=== PATIENT | male | born 1930 | race Caucasian/White ===

== ENCOUNTER 2018-06-17 06:19 | Emergency (ER) | payer MEDICARE, BC ==
[2018-06-17] MEDS ORDERED: Sodium Chloride 0.9% 1,000 ML IV ONE (06:40)
[2018-06-17] MEDS ORDERED: Ondansetron 4 MG/2 ML SDV IVPUSH ONE (06:40)
[2018-06-17] MEDS: Morphine 10 MG/ML Syringe IVPUSH ONE ×2 (06:48→06:55)
[2018-06-17] MEDS ORDERED: Ketorolac 30 MG/ML SDV IVPUSH ONE (07:00)
[2018-06-17] MEDS: Metoprolol Tartrate 5 MG/5 ML SDV IVPUSH ONE ×2 (07:05→07:45)
[2018-06-17] MEDS: HYDROmorphone 2 MG/ML SDV IVPUSH ONE ×2 (07:07→07:11)
[2018-06-17] MEDS ORDERED: Non-Formulary Medication 1 Each IV SCH (08:00)
--- NOTE | 2018-06-17 08:41 | EDM.PDOC ---
ED HPI GENERAL MEDICAL PROBLEM - General Chief Complaint: General Stated Complaint: BACK PAIN Time Seen by Provider: 06/17/18 06:50 Source of Information: Reports: Patient, Old Records History Limitations: Reports: No Limitations - History of Present Illness INITIAL COMMENTS - FREE TEXT/NARRATIVE: This is a 87yo M who came to the ER with severe back pain. He is writhing in pain. Patient states the pain is the worst pain he has felt and 10+/10. He has had a BM earlier this am when the pain started. He states it has been going on for hours and started around 2 am. He denies any fever, no chills, just mid abdominal and back pain. Patient does have a history of Graft for AAA in 2010 and cardiac stent in 2015. Onset: Sudden Duration: Hour(s): Location: Reports: Abdomen, Back Quality: Reports: Ache, Sharp, Stabbing, Throbbing Severity: Severe Improves with: Reports: None Worsens with: Reports: None Associated Symptoms: Reports: No Other Symptoms ED ROS GENERAL - Review of Systems Review Of Systems: ROS reveals no pertinent complaints other than HPI. ED EXAM, GENERAL - Physical Exam Exam: See Below Exam Limited By: No Limitations General Appearance: Alert, WD/WN, Severe Distress Eye Exam: Bilateral Eye: EOMI, PERRL Ears: Normal External Exam Nose: Normal Inspection Throat/Mouth: Normal Inspection Head: Atraumatic, Normocephalic Neck: Normal Inspection Respiratory/Chest: No Respiratory Distress, Lungs Clear, Normal Breath Sounds Cardiovascular: Normal Peripheral Pulses, Regular Rate, Rhythm Peripheral Pulses: 2+: Dorsalis Pedis (L), Dorsalis Pedis (R) GI/Abdominal: Soft, Abnormal Bowel Sounds (hyperactive BS), Mass, Other ( pulsatile mass of the abdomen superior to umbilicus) Back Exam: Normal Inspection Extremities: Normal Inspection Neurological: Alert, Oriented, Normal Cognition Psychiatric: Normal Affect, Normal Mood Skin Exam: Warm, Dry, Intact Course - Orders/Labs/Meds Orders: Active Orders 24 hr Category Date Time Status Abdomen 1V Flat [CR] Stat Exams 06/17/18 07:04 Taken Abdomen Pelvis wo Cont [CT] Stat Exams 06/17/18 07:04 Taken UA W/MICROSCOPIC [URIN] Stat Lab 06/17/18 07:30 Ordered Labs: Laboratory Tests 06/17/18 06/17/18 06/17/18 Range/Units 06:53 06:53 07:30 WBC 10.7 D (4.0-11.0) K/uL RBC 2.80 L (4.50-6.50) M/uL Hgb 9.2 L (13.0-18.0) g/dL Hct 27.3 L (40.0-54.0) % MCV 98 H (76-96) fL MCH 32.9 H (27.0-32.0) pg MCHC 33.7 (31.0-35.0) g/dL RDW 12.2 (11.0-16.0) % Plt Count 158 (150-400) K/uL MPV 9.5 (6.0-10.0) fL Neut % (Auto) 84.1 H (45.0-70.0) % Lymph % (Auto) 6.9 L (20.0-40.0) % [place] % (Auto) 8.0 (3.0-10.0) % Eos % (Auto) 0.8 L (1.0-5.0) % Baso % (Auto) 0.2 (0.0-0.5) % Neut # (Auto) 8.98 H (2.00-7.50) K/uL Lymph # (Auto) 0.74 L (1.50-4.00) K/uL [place] # (Auto) 0.86 H (0.20-0.80) K/uL Eos # (Auto) 0.09 (0.04-0.40) K/uL Baso # (Auto) 0.02 (0.02-0.10) K/uL Sodium 138 (136-145) mmol/L Potassium 3.5 D (3.5-5.1) mmol/L Chloride 102 (98-107) mmol/L Carbon Dioxide 23.0 (21.0-32.0) mmol/L Anion Gap 16.5 H (5.0-15.0) mmol/L BUN 23 D (8-26) mg/dL Creatinine 1.41 H (0.70-1.30) mg/dL Est Cr Clr Drug Dosing TNP Estimated GFR (MDRD) 48 L (>60) MLS/MIN BUN/Creatinine Ratio 16.3 (6-25) Glucose 189 H D (74-100) mg/dL Calcium 8.0 L (8.5-10.1) mg/dL Total Bilirubin 0.6 D (0.0-1.0) mg/dL AST 20 (15-37) U/L ALT 22 (12-78) U/L Alkaline Phosphatase 58 (46-116) U/L Troponin I 0.002 (0.000-0.060) ng/mL Total Protein 6.9 (6.4-8.2) g/dL Albumin 3.7 (3.4-5.0) g/dL Globulin 3.2 (2.2-4.2) g/dL Albumin/Globulin Ratio 1.2 (0.8-2.0) Urine Color Yellow Urine Appearance Clear (CLEAR) Urine pH 6.0 (5.0-8.0) Ur Specific [place] 1.020 (1.003-1.030) Urine Protein 30 H (NEGATIVE) mg/dL Urine Glucose (UA) Negative (NEGATIVE) mg/dL Urine Ketones Negative (NEGATIVE) mg/dL Urine Occult Blood Trace-intact H (NEGATIVE) Urine Nitrite Negative (NEGATIVE) Urine Bilirubin Negative (NEGATIVE) Urine Urobilinogen 0.2 (0.2-1.0) E.U./dL Ur Leukocyte Esterase Negative (NEGATIVE) Urine RBC Not seen /HPF Urine WBC Not seen /HPF Ur Squamous Epith Cells Few /HPF Urine Bacteria Not seen /HPF Departure - Departure Time of Disposition: 09:30 Disposition: DC/Tfer to Acute Hospital 02 Condition: Serious, Critical Clinical Impression: Ruptured abdominal aortic aneurysm (AAA) - Discharge Information Referrals: PCP,Unknown [Primary Care Provider] - - Problem List & Annotations (1) Ruptured abdominal aortic aneurysm (AAA) SNOMED Code(s): 25014918 Code(s): I71.3 - ABDOMINAL AORTIC ANEURYSM, RUPTURED Status: Acute Current Visit: Yes - Problem List Review Problem List Initiated/Reviewed/Updated: Yes - My Orders Last 24 Hours: My Active Orders 06/17/18 07:04 Abdomen 1V Flat [CR] Stat Abdomen Pelvis wo Cont [CT] Stat 06/17/18 07:30 UA W/MICROSCOPIC [URIN] Stat - Assessment/Plan Last 24 Hours: My Active Orders 06/17/18 07:04 Abdomen 1V Flat [CR] Stat Abdomen Pelvis wo Cont [CT] Stat 06/17/18 07:30 UA W/MICROSCOPIC [URIN] Stat Plan: Consulted Vascular surgeon [place]'s Dr. Blankenship. Pacs sent but [facility] unable to open? Sent again and verified on our system. Discussed plan of care and patient will be placed on Esmolol drip to maintain low systolic pressure and will be airlifted to OR.
[2018-06-17] MEDS ORDERED: WATER ONE (09:45)
[2018-06-17] MEDS ORDERED: HYDROmorphone 2 MG/ML Syringe ONE (09:45)
[2018-06-17] MEDS ORDERED: 5% Dextrose in Water 100 ML Bag ONE (09:45)
[2018-06-17] MEDS ORDERED: Esmolol 100 MG/10 ML SDV ONE ×3 (09:45)
[2018-06-17] MEDS ORDERED: DEXTROSE ONE (09:45)
--- NOTE | 2018-06-17 11:31 | CR ---
DATE OF SERVICE: 06/17/18 CLINICAL DATA: pain SUPINE ABDOMEN: There is gas throughout the colon. There are multiple gas-filled loops of small bowel within the abdomen. They are not distended. There is an aortic endograft in place. No other significant findings. [id number] [facility]
--- NOTE | 2018-06-17 20:25 | CONS ---
DATE OF CONSULTATION: 06/17/2018 Unenhanced abdomen and pelvic CT, 17 June 2018: Multi slice axial acquisition through the abdomen and pelvis without IV or oral contrast was performed. No priors. The lung bases are clear. The liver is normal size. There are several low-density lesions within the liver. These may represent cysts; however, there are not adequately evaluated on this unenhanced scan. Contrast-enhanced CT is recommended. The gallbladder appears normal. The spleen appears normal. The pancreas appears normal. There is mild atrophy of both kidneys. No nephrocalcinosis or nephrolithiasis. No hydronephrosis or hydroureter. There is an aortic endograft in place. There is 8.0 cm aneurysm of the [place] aorta. There is dense of abnormal soft tissue density material in the periaortic retroperitoneum as well as within the anterior pararenal spaces and posterior pararenal spaces bilaterally with extension into the right and left pelvis. This most likely represents aortic rupture with retroperitoneal hemorrhage/hematoma. There is a Lau catheter within the bladder. No free air. No dilated loops of bowel. No adenopathy. IMPRESSION: Abnormal exam. Findings consistent with aortic aneurysm with aortic rupture and extensive retroperitoneal hemorrhage as discussed above. The patient's physician was notified of the findings via telephone and by virtual radiologic preliminary radiology report. TANO/YONATAN /[id number]
--- NOTE | 2018-06-21 08:49 | CT ---
DATE OF SERVICE: 06/17/2018 CLINICAL DATA: Pain. UNENHANCED ABDOMEN AND PELVIC CT: Multislice axial acquisition through the abdomen and pelvis without IV or oral contrast was performed. No priors. The lung bases are clear. The liver is normal size. There are several low-density lesions within the liver. These may represent cysts; however, there are not adequately evaluated on this unenhanced scan. Contrast-enhanced CT is recommended. The gallbladder appears normal. The spleen appears normal. The pancreas appears normal. There is mild atrophy of both kidneys. No nephrocalcinosis or nephrolithiasis. No hydronephrosis or hydroureter. There is an aortic endograft in place. There is an 8.0 cm aneurysm of the [place] aorta. There is extensive abnormal soft tissue density material in the periaortic retroperitoneum, as well as within the anterior pararenal spaces and posterior pararenal spaces bilaterally with extension into the right and left pelvis. This most likely represents aortic rupture with retroperitoneal hemorrhage/hematoma. There is a Lau catheter within the bladder. No free air. No dilated loops of bowel. No adenopathy. IMPRESSION Abnormal exam. Findings consistent with aortic aneurysm with aortic rupture and extensive retroperitoneal hemorrhage, as discussed above. The patient's physician was notified of the findings via telephone and by virtual radiologic preliminary radiology report. [facility]
== END 2018-06-17 09:46 ==
LOC: LB.ED 06:19
DX: I71.3 Abdominal aortic aneurysm, ruptured (principal)
CPT/HCPCS: 36415; 74018; 74176; 80053; 81001; 84484; 85025; 96374; 96375; 96376; 99285; 99285-25; A0425; A0429; J1170; J1885; J2270; J2405; J3490; J7030; J7050; J7060

== ENCOUNTER 2020-08-10 06:37 | Emergency (ER) | payer MEDICARE, BC ==
[2020-08-10] MEDS ORDERED: Labetalol 100 MG/20 ML MDV IVPUSH ONE ×2 (07:03→07:19)
[2020-08-10] MEDS ORDERED: Morphine 2 MG/ML SYRINGE ONE (07:11)
[2020-08-10] MEDS ORDERED: LORazepam 2 MG/ML SDV IVPUSH ONE (07:14)
[2020-08-10] MEDS ORDERED: Labetalol 100 MG in Sodium Chloride 0.9% 80 ML IV SCH (07:15)
[2020-08-10] MEDS ORDERED: LORazepam 2 MG/ML SDV ONE (07:23)
[2020-08-10] MEDS ORDERED: Morphine 2 MG/ML SYRINGE IM ONE (08:34)
--- NOTE | 2020-08-10 09:01 | EDM.PDOC ---
ED HPI GENERAL MEDICAL PROBLEM - General Chief Complaint: Neurological Problem Stated Complaint: POSSIBLE ANEURYSM REPAIR RUPTURE Time Seen by Provider: 08/10/20 06:45 Source of Information: Reports: Patient History Limitations: Reports: No Limitations - History of Present Illness INITIAL COMMENTS - FREE TEXT/NARRATIVE: The patient is an 89-year-old white male who has history of abdominal aortic aneurysm surgery approximately 10 years ago. 2 years ago he had leakage on the right side of his repair with right-sided groin pain at that time. Patient reports that he noticed onset of left-sided pain in the groin which was the same type of pain he had with the leakage on the right side only on the left this time. The pain worsened through the night and patient called the ambulance for transport to the hospital. He had been flown via fixed wing aircraft to [place] to [facility] for repair 2 years ago. Onset: Today Onset Date: 08/09/20 Onset Time: 08:00 Duration: Other (10 hours) Location: Reports: Other (Left lower quadrant and inguinal region) Severity: Severe Improves with: Reports: None Worsens with: Reports: Movement Associated Symptoms: Reports: No Other Symptoms. Denies: Nausea/Vomiting - Related Data Allergies Allergy/AdvReac Type Severity Reaction Status Date / Time No Known Allergies Allergy Verified 06/17/18 08:41 Home Meds: Home Meds Isosorbide Mononitrate [Isosorbide Mononitrate ER] 06/17/18 [History] Metoprolol Succinate [Toprol XL 50mg] 06/17/18 [History] Nitroglycerin 06/17/18 [History] Tamsulosin [Flomax] 06/17/18 [History] amLODIPine Besylate [Amlodipine Besylate] 06/17/18 [History] atorvaSTATin [Lipitor] 40 mg PO BEDTIME 06/17/18 [History] hydroCHLOROthiazide [Hydrochlorothiazide] 25 mg PO 06/17/18 [History] Past Medical History Other Gastrointestinal History: hx of a AAA repair x2 ED ROS GENERAL - Review of Systems Review Of Systems: See Below Constitutional: Denies: Fever, Chills Respiratory: Denies: Shortness of Breath, Cough, Sputum Cardiovascular: Denies: Chest Pain, Lightheadedness GI/Abdominal: Reports: Abdominal Pain. Denies: Diarrhea, Nausea, Vomiting : Reports: No Symptoms Skin: Reports: Other (Petechial rash for past few months) Psychiatric: Reports: Anxiety ED EXAM, GENERAL - Physical Exam Exam: See Below Exam Limited By: No Limitations General Appearance: Alert, Anxious, Mild Distress Ears: Normal External Exam Nose: Normal Inspection, Normal Mucosa Throat/Mouth: Normal Inspection Head: Atraumatic, Normocephalic Neck: Normal Inspection, Supple, Non-Tender Respiratory/Chest: No Respiratory Distress, Lungs Clear, Normal Breath Sounds, No Accessory Muscle Use, Chest Non-Tender Cardiovascular: No JVD, Tachycardia GI/Abdominal: Soft, Other (Mild left lower quadrant tenderness without rebound or guarding) (Male) Exam: Deferred Back Exam: Normal Inspection Extremities: Pedal Edema, Other ( petechial rash) Course - Vital Signs Text/Narrative:: The patient was initially treated with labetalol 20 mg IV x210 minutes apart labetalol drip was started. At 2 mg/min . Nurses were instructed to titrate this upward to control the blood pressure systolic below 120. Ativan 1 mg IV and morphine 2 mg IV were given Ativan for anxiety,, and morphine for pain. Air transport was arranged. Initial attempt at helicopter transport was unsuccessful due to weather. Fixed wing transport was arranged with the plane landing in [place] connecting with ground transport from the hospital, and then taking the patient to [facility] in [place]. Patient had labetalol drip during transfer. RN to titrate labetalol drip to lower the blood pressure below 120 systolic. The case was discussed with Dr. Gong who agreed to acept patient in transfer to [facility] ED for further evaluation. Condition on discharge was improved. Last Recorded V/S: Last Vital Signs Temp 97.8 F 08/10/20 07:10 Pulse 102 H 08/10/20 07:10 Resp 16 08/10/20 07:10 BP 155/103 H 08/10/20 07:10 Pulse Ox 94 L 08/10/20 07:10 - Orders/Labs/Meds Labs: Laboratory Tests 08/10/20 08/10/20 08/10/20 Range/Units 07:10 07:10 07:10 WBC 6.4 D (4.0-11.0) K/uL RBC 3.14 L (4.50-6.50) M/uL Hgb 9.4 L (13.0-18.0) g/dL Hct 29.7 L (40.0-54.0) % MCV 95 (76-96) fL MCH 29.9 (27.0-32.0) pg MCHC 31.6 (31.0-35.0) g/dL RDW 14.4 (11.0-16.0) % Plt Count 129 L D (150-400) K/uL MPV 10.9 H (6.0-10.0) fL Neut % (Auto) 76.9 H (45.0-70.0) % Lymph % (Auto) 7.7 L (20.0-40.0) % [place] % (Auto) 13.0 H (3.0-10.0) % Eos % (Auto) 2.2 (1.0-5.0) % Baso % (Auto) 0.2 (0.0-0.5) % Neut # (Auto) 4.91 (2.00-7.50) K/uL Lymph # (Auto) 0.49 L (1.50-4.00) K/uL [place] # (Auto) 0.83 H (0.20-0.80) K/uL Eos # (Auto) 0.14 (0.04-0.40) K/uL Baso # (Auto) 0.01 L (0.02-0.10) K/uL PT (9.0-11.5) sec INR (1.0-3.5) APTT 25.1 (24.4-33.2) SECONDS Sodium 137 (136-145) mmol/L Potassium 3.7 (3.5-5.1) mmol/L Chloride 100 (98-107) mmol/L Carbon Dioxide 27.1 (21.0-32.0) mmol/L Anion Gap 13.6 (5.0-15.0) mmol/L BUN 14 (8-26) mg/dL Creatinine 1.21 (0.70-1.30) mg/dL Est Cr Clr Drug Dosing TNP Estimated GFR (MDRD) 57 L (>60) MLS/MIN BUN/Creatinine Ratio 11.6 (6-25) Glucose 185 H D (74-100) mg/dL Calcium 8.3 L (8.5-10.1) mg/dL Total Bilirubin 1.4 H (0.0-1.0) mg/dL AST 27 (15-37) U/L ALT 31 (12-78) U/L Alkaline Phosphatase 97 (46-116) U/L Total Protein 7.5 (6.4-8.2) g/dL Albumin 4.0 (3.4-5.0) g/dL Globulin 3.5 (2.2-4.2) g/dL Albumin/Globulin Ratio 1.1 (0.8-2.0) 08/10/20 Range/Units 07:10 WBC (4.0-11.0) K/uL RBC (4.50-6.50) M/uL Hgb (13.0-18.0) g/dL Hct (40.0-54.0) % MCV (76-96) fL MCH (27.0-32.0) pg MCHC (31.0-35.0) g/dL RDW (11.0-16.0) % Plt Count (150-400) K/uL MPV (6.0-10.0) fL Neut % (Auto) (45.0-70.0) % Lymph % (Auto) (20.0-40.0) % [place] % (Auto) (3.0-10.0) % Eos % (Auto) (1.0-5.0) % Baso % (Auto) (0.0-0.5) % Neut # (Auto) (2.00-7.50) K/uL Lymph # (Auto) (1.50-4.00) K/uL [place] # (Auto) (0.20-0.80) K/uL Eos # (Auto) (0.04-0.40) K/uL Baso # (Auto) (0.02-0.10) K/uL PT 12.1 H (9.0-11.5) sec INR 1.2 (1.0-3.5) APTT (24.4-33.2) SECONDS Sodium (136-145) mmol/L Potassium (3.5-5.1) mmol/L Chloride (98-107) mmol/L Carbon Dioxide (21.0-32.0) mmol/L Anion Gap (5.0-15.0) mmol/L BUN (8-26) mg/dL Creatinine (0.70-1.30) mg/dL Est Cr Clr Drug Dosing Estimated GFR (MDRD) (>60) MLS/MIN BUN/Creatinine Ratio (6-25) Glucose (74-100) mg/dL Calcium (8.5-10.1) mg/dL Total Bilirubin (0.0-1.0) mg/dL AST (15-37) U/L ALT (12-78) U/L Alkaline Phosphatase (46-116) U/L Total Protein (6.4-8.2) g/dL Albumin (3.4-5.0) g/dL Globulin (2.2-4.2) g/dL Albumin/Globulin Ratio (0.8-2.0) Meds: Medications Discontinued Medications Generic Name Dose Route Start Last Admin Trade Name Freq PRN Reason Stop Dose Admin Labetalol HCl 100 mg/ Sodium 100 mls @ 120 mls/hr 08/10/20 07:15 08/10/20 08:33 Chloride IV 2 mg/min TITRATE GALEN 120 mls/hr Administration Protocol 2 MG/MIN Labetalol HCl 20 mg 08/10/20 07:03 08/10/20 07:10 Normodyne IVPUSH 08/10/20 07:04 20 mg ONETIME ONE Administration Protocol Labetalol HCl 20 mg 08/10/20 07:19 08/10/20 07:20 Normodyne IVPUSH 08/10/20 07:20 20 mg ONETIME ONE Administration Protocol Lorazepam 1 mg 08/10/20 07:14 08/10/20 07:18 Ativan IVPUSH 08/10/20 07:15 1 mg ONETIME ONE Administration Lorazepam Confirm 08/10/20 07:23 Ativan Administered 08/10/20 07:24 Dose 2 mg .ROUTE .STK-MED ONE Morphine Sulfate Confirm 08/10/20 07:11 Morphine Administered 08/10/20 07:12 Dose 2 mg .ROUTE .STK-MED ONE Morphine Sulfate 2 mg 08/10/20 08:34 08/10/20 07:04 Morphine IM 08/10/20 08:35 2 mg ONETIME ONE Administration - Radiology Interpretation Free Text/Narrative:: CT with large aortic abdominal aneurysm with repair. Possible leaking of bypass into the [place] aneurysm. Copy of report sent to referral hospital. Departure - Departure Time of Disposition: 07:45 Disposition: DC/Tfer to Acute Hospital 02 Reason for Transfer *Q: Other (Higher level of care) Condition: Serious Clinical Impression: Abdominal aortic aneurysm rupture, Leaking abdominal aortic aneurysm (AAA) Referrals: PCP,None [Primary Care Provider] - Forms: ED Department Discharge Additional Instructions: Plan is to transfer patient via ground ambulance to [place] and then transfer to fixed wing aircraft to take the patient to [facility]. Patient's blood pressure to be controlled by labetalol drip. Initial drip at 2 mg/min. RN to titrate to target of systolic blood pressure 120. Patient be transferred to the emergency department for further evaluation at [facility] Sepsis Event Note (ED) - Evaluation Sepsis Screening Result: No Definite Risk
--- NOTE | 2020-08-12 09:57 | CT ---
Date of Service: 08/10/20 Clinical Data: R/o rupture of AAA repair on left side ENHANCED ABDOMEN AND PELVIC CT: Multislice acquisition through the abdomen and pelvis with IV, but without oral contrast was performed. Comparison is made to a prior exam dated 06/17/18. Thee is a moderate size right pleural effusion and a very small left pleural effusion. There are atelectatic changes in both lung bases. There is diffuse fatty infiltration of the liver. There is an 11 mm low density lesion within the left lobe of the liver, medial segment with subtle peripheral enhancement. There are a couple of other smaller low density lesions within the liver. Hepatic metastatic disease should be considered. The gallbladder appears normal. No biliary duct dilatation. The spleen appears normal. The pancreas appears normal. The right and left adrenals appear normal. The right and left kidneys enhance symmetrically. No hydronephrosis or hydroureter The bladder is partially fluid filled. It appears normal. No evidence of appendicitis. There is a large 8.1 cm abdominal aortic aneurysm with an aortic endograft in place . There is contrast noted within the graft. There is also hyperdensity within the [place] aorta external to the graft suggesting a graft leakage. No evidence of leakage from the [place] aorta. No free air. No free fluid. No dilated loops of bowel. No adenopathy. There is diverticulosis of the descending and sigmoid colon. There is mild pericolonic fat stranding adjacent to the distal descending and proximal sigmoid colon suggesting the possibility of diverticulitis. No evidence of diverticular abscess. There is degenerative disk disease throughout the lower thoracic and lumbar spine. No other significant findings. IMPRESSION: 1. 8.1 cm abdominal aortic aneurysm. There is an aortic endograft in place. There is contrast noted within the graft. There is also some hyperdense material within the [place] aortic aneurysm distally suggesting graft leakage. No evidence of leakage from the [place] aorta. 2, Findings suggesting mild diverticulitis. No evidence of diverticular abscess. 3. Bilateral pleural effusions. 4. Other findings as discussed above. The patient's physician was notified of the findings by telephone and by [employer] preliminary radiology report. [id number] [facility]
== END 2020-08-10 07:45 ==
LOC: LB.ED 06:37
DX: I71.3 Abdominal aortic aneurysm, ruptured (principal); R00.0 Tachycardia, unspecified; R21 Rash and other nonspecific skin eruption; R60.0 Localized edema
CPT/HCPCS: 36415; 74177; 80053; 85025; 85610; 85730; 96365; 96372; 96375; 96376; 99285; 99285-25; J2060; J2270; J3490

== ENCOUNTER 2021-09-02 10:55 | Emergency (ER) | payer MEDICARE, BC ==
[2021-09-02] MEDS ORDERED: Furosemide 40 MG/4 ML VIAL IVPUSH ONE (11:19)
[2021-09-02] MEDS ORDERED: Metoprolol Tartrate 5 MG/5 ML SDV IVPUSH ONE (11:19)
--- NOTE | 2021-09-02 11:35 | EDM.PDOC ---
ED HPI GENERAL MEDICAL PROBLEM - General Chief Complaint: General Stated Complaint: SHORTNESS OF BREATH Time Seen by Provider: 09/02/21 11:11 Source of Information: Reports: Patient, RN Notes Reviewed History Limitations: Reports: No Limitations - History of Present Illness INITIAL COMMENTS - FREE TEXT/NARRATIVE: This patient presents to the emergency department complaining of just not feeling well. He states he is gotten progressively weaker and more short of breath over the past couple of months. He states that he was seen in the ER last October for similar concerns and he was noted to be anemic. He is concerned that he might have anemia again. He states at that time he was given some blood and felt great again and has been doing fine since then. He is having a little bit of shortness of breath, particularly with exertion in the last week or 2 weeks he is not quite sure. His appetite has been decreased but he has been drinking fluids. He denies any syncope or falls. He denies any chest pain, abdominal pain, headache, other concerns or complaints. - Related Data Allergies Allergy/AdvReac Type Severity Reaction Status Date / Time No Known Allergies Allergy Verified 06/17/18 08:41 Home Meds: Home Meds Metoprolol Succinate [Toprol XL 50mg] 50 mg PO DAILY 06/17/18 [History] Tamsulosin [Flomax] 0.4 mg PO DAILY 06/17/18 [History] atorvaSTATin [Lipitor] 20 mg PO BEDTIME 06/17/18 [History] Apixaban [Eliquis] 5 mg PO Q12HR 09/02/21 [History] Aspirin 81 mg PO DAILY 09/02/21 [History] Cholecalciferol (Vitamin D3) [Vitamin D] 25 mg PO DAILY 09/02/21 [History] Cyanocobalamin (Vitamin B-12) [B-12] 1,000 mcg PO DAILY 09/02/21 [History] Ferrous Sulfate [Iron] 325 mg PO DAILY 09/02/21 [History] Folic Acid 1 mg PO DAILY 09/02/21 [History] Folic Acid 800 mcg PO DAILY 09/02/21 [History] Furosemide [Lasix] 20 mg PO ASDIRECTED PRN 09/02/21 [History] Past Medical History Other Gastrointestinal History: hx of a AAA repair x2 ED ROS GENERAL - Review of Systems Review Of Systems: Comprehensive ROS is negative, except as noted in HPI. ED EXAM, GENERAL - Physical Exam Exam: See Below Exam Limited By: Other (Color pale, mucous membranes moist) General Appearance: Alert, No Apparent Distress Eye Exam: Bilateral Eye: PERRL Ears: Normal External Exam Nose: Normal Inspection Throat/Mouth: Normal Inspection Head: Atraumatic Neck: Normal Inspection, Full Range of Motion Respiratory/Chest: No Respiratory Distress, Normal Breath Sounds, No Accessory Muscle Use Cardiovascular: Other (He is in A. fib with RVR) Extremities: Normal Inspection Neurological: Alert, Oriented Psychiatric: Normal Affect Skin Exam: Warm, Dry, Intact, Pallor Course - Vital Signs Last Recorded V/S: Last Vital Signs Temp 36.4 C 09/02/21 15:43 Pulse 90 09/02/21 15:55 Resp 16 09/02/21 15:34 BP 152/74 H 09/02/21 15:34 Pulse Ox 98 09/02/21 12:07 - Orders/Labs/Meds Orders: Active Orders 24 hr Category Date Time Status UA RFX CHUN AND CULT IF INDIC [URIN] Stat Lab 09/02/21 11:18 Ordered Transfuse Red Blood Cells [COMM] Stat Oth 09/02/21 11:59 Ordered Labs: Laboratory Tests 09/02/21 09/02/21 09/02/21 Range/Units 11:18 11:18 11:44 WBC 5.5 D (4.0-11.0) K/uL RBC 1.91 L (4.50-6.50) M/uL Hgb 6.1 L* D (13.0-18.0) g/dL Hct 19.3 L* D (40.0-54.0) % MCV 101 H (76-96) fL MCH 31.9 (27.0-32.0) pg MCHC 31.6 (31.0-35.0) g/dL RDW 14.3 (11.0-16.0) % Plt Count 145 L D (150-400) K/uL MPV 10.7 H (6.0-10.0) fL Neut % (Auto) 81.9 H (45.0-70.0) % Lymph % (Auto) 4.2 L (20.0-40.0) % [place] % (Auto) 13.2 H (3.0-10.0) % Eos % (Auto) 0.5 L (1.0-5.0) % Baso % (Auto) 0.2 (0.0-0.5) % Neut # (Auto) 4.47 (2.00-7.50) K/uL Lymph # (Auto) 0.23 L (1.50-4.00) K/uL [place] # (Auto) 0.72 (0.20-0.80) K/uL Eos # (Auto) 0.03 L (0.04-0.40) K/uL Baso # (Auto) 0.01 L (0.02-0.10) K/uL Sodium 135 L (136-145) mmol/L Potassium 3.7 (3.5-5.1) mmol/L Chloride 100 (98-107) mmol/L Carbon Dioxide 23.7 D (21.0-32.0) mmol/L Anion Gap 15.0 (5.0-15.0) mmol/L BUN 32 H D (8-26) mg/dL Creatinine 1.30 D (0.70-1.30) mg/dL Est Cr Clr Drug Dosing TNP Estimated GFR (MDRD) 52 L (>60) MLS/MIN BUN/Creatinine Ratio 24.6 (6-25) Glucose 136 H D (74-100) mg/dL Calcium 8.1 L (8.5-10.1) mg/dL Troponin I 0.079 H* D (0.000-0.060) ng/mL Blood Type A POSITIVE Gel Antibody Screen Negative Crossmatch See Detail Meds: Medications Discontinued Medications Generic Name Dose Route Start Last Admin Trade Name Harper PRN Reason Stop Dose Admin Furosemide 40 mg 09/02/21 11:19 09/02/21 12:04 Furosemide 40 Mg/4 Ml Vial IVPUSH 09/02/21 11:20 40 mg NOW ONE Administration Furosemide Confirm 09/02/21 11:37 09/02/21 12:03 Furosemide 40 Mg/4 Ml Vial Administered 09/02/21 11:38 Not Given Dose 40 mg .ROUTE .STK-MED ONE Metoprolol Tartrate 5 mg 09/02/21 11:19 09/02/21 12:03 Metoprolol Tartrate 5 Mg/5 Ml Sdv IVPUSH 09/02/21 11:20 5 mg ONETIME ONE Administration Metoprolol Tartrate Confirm 09/02/21 11:37 09/02/21 12:03 Metoprolol Tartrate 5 Mg/5 Ml Sdv Administered 09/02/21 11:38 Not Given Dose 5 mg .ROUTE .[facility] ONE - Radiology Interpretation Free Text/Narrative:: This patient presents to the emergency department for evaluation of weakness and just not feeling well. History and clinical findings are most consistent with anemia. He was noted to have a hemoglobin of 6.9. He was kept in the emergency department and transfused with 2 units of packed cells which he tolerated very well. On reassessment he is is no longer tachycardic. His color is improved dramatically and he states he feels much better. He is more stable with walking and anxious to go home. He did have some solids and some fluids while he was getting transfused. The patient is stable at the time of discharge. Departure - Departure Time of Disposition: 17:45 Disposition: Home, Self-Care 01 Condition: Good Clinical Impression: Anemia, Atrial fibrillation Instructions: Anemia Referrals: Rah Lewis MD [Primary Care Provider] - Forms: ED Department Discharge Sepsis Event Note (ED) - Focused Exam Vital Signs: Vital Signs Temp Temp Pulse Pulse Resp BP BP 09/02/21 15:55 90 09/02/21 15:43 36.4 C 09/02/21 15:34 98 16 152/74 H 09/02/21 13:38 36.2 C 89 16 134/69 09/02/21 12:07 36.5 C 89 16 128/60 09/02/21 12:03 89 128/60 09/02/21 12:00 89 18 128/60 09/02/21 11:00 36.5 C 116 H 16 147/72 H Pulse Ox 09/02/21 15:55 09/02/21 15:43 09/02/21 15:34 09/02/21 13:38 09/02/21 12:07 98 09/02/21 12:03 09/02/21 12:00 98 09/02/21 11:00 95 - My Orders Last 24 Hours: My Active Orders 09/02/21 11:18 UA RFX CHUN AND CULT IF INDIC [URIN] Stat 09/02/21 11:59 Transfuse Red Blood Cells [COMM] Stat - Assessment/Plan Last 24 Hours: My Active Orders 09/02/21 11:18 UA RFX CHUN AND CULT IF INDIC [URIN] Stat 09/02/21 11:59 Transfuse Red Blood Cells [COMM] Stat
[2021-09-02] MEDS ORDERED: Furosemide 40 MG/4 ML VIAL ONE (11:37)
[2021-09-02] MEDS ORDERED: Metoprolol Tartrate 5 MG/5 ML SDV ONE (11:37)
== END 2021-09-02 17:37 | disposition home or self-care (01) ==
LOC: LB.ED 10:55
DX: I48.91 Unspecified atrial fibrillation (principal); D64.9 Anemia, unspecified; Z79.01 Long term (current) use of anticoagulants; Z79.82 Long term (current) use of aspirin; Z79.899 Other long term (current) drug therapy
CPT/HCPCS: 36415; 36430; 80048; 84484; 85025; 86850; 86900; 86901; 86920; 86922; 93005; 96374; 96375; 99285-25; J1940; J3490; P9016

== ENCOUNTER 2021-10-02 09:10 | Emergency (ER) | payer MEDICARE, BC ==
[2021-10-02] MEDS ORDERED: Sodium Chloride 0.9% 10 ML Syringe FLUSH PRN (09:27)
[2021-10-02] MEDS ORDERED: Sodium Chloride 0.9% 1,000 ML IV SCH (09:45)
[2021-10-02] MEDS ORDERED: Famotidine 20 MG/2 ML SDV IVPUSH ONE (09:46)
--- NOTE | 2021-10-02 12:47 | EDM.PDOC ---
ED HPI GENERAL MEDICAL PROBLEM - General Chief Complaint: Gastrointestinal Problem Stated Complaint: WEAKNESS Time Seen by Provider: 10/02/21 09:20 Source of Information: Reports: Patient, Family, RN Notes Reviewed History Limitations: Reports: No Limitations - History of Present Illness INITIAL COMMENTS - FREE TEXT/NARRATIVE: This patient presents to the emergency department for evaluation of weakness. He states in the last 3 days he is gotten quite weak and fatigued. He was seen approximately a month ago for the same concerns and was noted to have a low hemoglobin. At that time he had a small amount of blood noted in his stool but it had resolved by the time he was evaluated. He was given 2 units of packed cells and discharged to home. He states that he has been doing fairly well until the last 3 days when he has started to have looser stools with blood noted. He states that this morning he had "a lot" of blood in his stool and in the toilet. He is quite pale, states he has not been eating well but has been drinking fluids. He denies other concerns or complaints. Chest Pain Score (Numeric/FACES): 6 - Related Data Allergies Allergy/AdvReac Type Severity Reaction Status Date / Time No Known Allergies Allergy Verified 10/02/21 10:14 Home Meds: Home Meds Metoprolol Succinate [Toprol XL 50mg] 50 mg PO DAILY 06/17/18 [History] Tamsulosin [Flomax] 0.4 mg PO DAILY 06/17/18 [History] atorvaSTATin [Lipitor] 20 mg PO BEDTIME 06/17/18 [History] Apixaban [Eliquis] 5 mg PO Q12HR 09/02/21 [History] Aspirin 81 mg PO DAILY 09/02/21 [History] Cholecalciferol (Vitamin D3) [Vitamin D] 25 mg PO DAILY 09/02/21 [History] Cyanocobalamin (Vitamin B-12) [B-12] 1,000 mcg PO DAILY 09/02/21 [History] Ferrous Sulfate [Iron] 325 mg PO DAILY 09/02/21 [History] Folic Acid 1 mg PO DAILY 09/02/21 [History] Folic Acid 800 mcg PO DAILY 09/02/21 [History] Furosemide [Lasix] 60 mg PO BID PRN 09/02/21 [History] Ferrous Sulfate [Iron] 325 mg PO DAILY 30 Days #30 tablet 10/02/21 [Rx] Past Medical History HEENT History: Reports: Glaucoma, Hard of Hearing, Impaired Vision Cardiovascular History: Reports: Afib, Bypass Other Gastrointestinal History: hx of a AAA repair x2 Social & Family History - Alcohol Use Days Per Week of Alcohol Use: 7 Number of Drinks Per Day: 1 Total Drinks Per Week: 7 - Recreational Drug Use Recreational Drug Use: No ED ROS GENERAL - Review of Systems Review Of Systems: Comprehensive ROS is negative, except as noted in HPI. ED EXAM, GI/ABD - Physical Exam Exam: See Below Exam Limited By: No Limitations General Appearance: Alert, No Apparent Distress Eyes: Bilateral: Normal Appearance Ears: Normal External Exam Nose: Normal Inspection Throat/Mouth: Normal Inspection Head: Atraumatic, Normocephalic Neck: Normal Inspection, Non-Tender, Full Range of Motion Respiratory/Chest: No Respiratory Distress, Lungs Clear, Normal Breath Sounds, No Accessory Muscle Use Cardiovascular: Normal Peripheral Pulses, Regular Rate, Rhythm Neurological: Alert, Oriented Psychiatric: Normal Affect Skin Exam: Warm, Dry, Intact #1 Interpretation EKG Date: 10/02/21 Time: 09:57 Rhythm: A-Fib (with RVR) [place]: Normal (indication: chest pain with anemia) Course - Vital Signs Last Recorded V/S: Last Vital Signs Temp 36.3 C 10/02/21 16:43 Pulse 94 10/02/21 16:43 Resp 18 10/02/21 16:43 BP 137/65 10/02/21 16:43 Pulse Ox 96 10/02/21 10:19 - Orders/Labs/Meds Orders: Active Orders 24 hr Category Date Time Status Saline Lock Insert [OM.PC] Routine Oth 10/02/21 09:27 Ordered Labs: Laboratory Tests 10/02/21 10/02/21 10/02/21 Range/Units 09:35 09:35 09:35 WBC 4.5 (4.0-11.0) K/uL RBC 2.06 L (4.50-6.50) M/uL Hgb 6.3 L* (13.0-18.0) g/dL Hct 20.9 L (40.0-54.0) % MCV 102 H (76-96) fL MCH 30.6 (27.0-32.0) pg MCHC 30.1 L (31.0-35.0) g/dL RDW 17.1 H (11.0-16.0) % Plt Count 120 L (150-400) K/uL MPV 10.2 H (6.0-10.0) fL Neut % (Auto) 73.0 H (45.0-70.0) % Lymph % (Auto) 9.1 L (20.0-40.0) % [place] % (Auto) 14.6 H (3.0-10.0) % Eos % (Auto) 2.9 (1.0-5.0) % Baso % (Auto) 0.4 (0.0-0.5) % Neut # (Auto) 3.29 (2.00-7.50) K/uL Lymph # (Auto) 0.41 L (1.50-4.00) K/uL [place] # (Auto) 0.66 (0.20-0.80) K/uL Eos # (Auto) 0.13 (0.04-0.40) K/uL Baso # (Auto) 0.02 (0.02-0.10) K/uL PT 12.2 H (9.0-11.5) sec INR 1.2 (1.0-3.5) Sodium 137 (136-145) mmol/L Potassium 3.9 (3.5-5.1) mmol/L Chloride 100 (98-107) mmol/L Carbon Dioxide 26.5 (21.0-32.0) mmol/L Anion Gap 14.4 (5.0-15.0) mmol/L BUN 24 (8-26) mg/dL Creatinine 1.13 (0.70-1.30) mg/dL Est Cr Clr Drug Dosing 39.99 mL/min Estimated GFR (MDRD) > 60 (>60) MLS/MIN BUN/Creatinine Ratio 21.2 (6-25) Glucose 157 H D (74-100) mg/dL Calcium 8.0 L (8.5-10.1) mg/dL Total Bilirubin 0.8 D (0.0-1.0) mg/dL AST 27 (15-37) U/L ALT 29 (12-78) U/L Alkaline Phosphatase 68 (46-116) U/L Total Protein 6.4 (6.4-8.2) g/dL Albumin 3.2 L (3.4-5.0) g/dL Globulin 3.2 (2.2-4.2) g/dL Albumin/Globulin Ratio 1.0 (0.8-2.0) Blood Type Gel Antibody Screen Crossmatch 10/02/21 Range/Units 09:35 WBC (4.0-11.0) K/uL RBC (4.50-6.50) M/uL Hgb (13.0-18.0) g/dL Hct (40.0-54.0) % MCV (76-96) fL MCH (27.0-32.0) pg MCHC (31.0-35.0) g/dL RDW (11.0-16.0) % Plt Count (150-400) K/uL MPV (6.0-10.0) fL Neut % (Auto) (45.0-70.0) % Lymph % (Auto) (20.0-40.0) % [place] % (Auto) (3.0-10.0) % Eos % (Auto) (1.0-5.0) % Baso % (Auto) (0.0-0.5) % Neut # (Auto) (2.00-7.50) K/uL Lymph # (Auto) (1.50-4.00) K/uL [place] # (Auto) (0.20-0.80) K/uL Eos # (Auto) (0.04-0.40) K/uL Baso # (Auto) (0.02-0.10) K/uL PT (9.0-11.5) sec INR (1.0-3.5) Sodium (136-145) mmol/L Potassium (3.5-5.1) mmol/L Chloride (98-107) mmol/L Carbon Dioxide (21.0-32.0) mmol/L Anion Gap (5.0-15.0) mmol/L BUN (8-26) mg/dL Creatinine (0.70-1.30) mg/dL Est Cr Clr Drug Dosing mL/min Estimated GFR (MDRD) (>60) MLS/MIN BUN/Creatinine Ratio (6-25) Glucose (74-100) mg/dL Calcium (8.5-10.1) mg/dL Total Bilirubin (0.0-1.0) mg/dL AST (15-37) U/L ALT (12-78) U/L Alkaline Phosphatase (46-116) U/L Total Protein (6.4-8.2) g/dL Albumin (3.4-5.0) g/dL Globulin (2.2-4.2) g/dL Albumin/Globulin Ratio (0.8-2.0) Blood Type A POSITIVE Gel Antibody Screen Negative Crossmatch See Detail Meds: Medications Discontinued Medications Generic Name Dose Route Start Last Admin Trade Name Freq PRN Reason Stop Dose Admin Famotidine 20 mg 10/02/21 09:46 10/02/21 09:48 Famotidine 20 Mg/2 Ml Sdv IVPUSH 10/02/21 09:47 20 mg ONETIME ONE Administration Sodium Chloride 1,000 mls @ 125 mls/hr 10/02/21 09:45 10/02/21 09:47 Normal Saline IV 125 mls/hr ASDIRECTED GALEN Administration Sodium Chloride 10 ml 10/02/21 09:27 Sodium Chloride 0.9% 10 Ml Syringe FLUSH ASDIRECTED PRN Keep Vein Open - Re-Assessments/Exams Free Text/Narrative Re-Assessment/Exam: 10/02/21 18:17 This patient presents to the ER for evaluation of weakness. History and clinical findings are most consistent with anemia related to a GI bleed. He was transfused with 2 units of packed blood cells and tolerated this very well. Color was greatly improved after the transfusion. He is continuing to have bloody stools and will have a colonoscopy on October 09. On reassessment prior to discharge he denied any chest pain, difficulty breathing and stated he felt much better. He will continue on his usual meds with the exception of stopping his Eliquis next week just prior to his colonoscopy. His iron supplementations were renewed and he was instructed to follow-up with "In the meantime or return to the ER should he have any other concerns. Departure - Departure Time of Disposition: 16:45 Disposition: Home, Self-Care 01 Condition: Good Clinical Impression: Anemia, GI bleed - Discharge Information Prescriptions: Ferrous Sulfate [Iron] 325 mg PO DAILY 30 Days #30 tablet Instructions: Lower Gastrointestinal Bleeding Referrals: Rah Lewis MD [Primary Care Provider] - Forms: ED Department Discharge Care Plan Goals: Stop taking Aspirin starting today. Stop taking Eliquis two days before colonoscopy. Sepsis Event Note (ED) - Evaluation Sepsis Screening Result: No Definite Risk - Focused Exam Vital Signs: Vital Signs Temp Temp Pulse Resp BP Pulse Ox 10/02/21 16:43 36.3 C 94 18 137/65 10/02/21 14:50 36.6 C 98 18 154/58 H 10/02/21 13:43 36.3 C 103 H 18 145/82 H 10/02/21 13:28 36.6 C 98 18 140/63 10/02/21 13:14 36.7 C 92 18 135/58 L 10/02/21 10:19 36.1 C 111 H 18 150/55 H 96 10/02/21 09:34 36.1 C 104 H 18 111/41 L 97 - My Orders Last 24 Hours: My Active Orders 10/02/21 09:27 Saline Lock Insert [OM.PC] Routine - Assessment/Plan Last 24 Hours: My Active Orders 10/02/21 09:27 Saline Lock Insert [OM.PC] Routine
== END 2021-10-02 17:11 | disposition home or self-care (01) ==
LOC: LB.ED 09:10
DX: K92.2 Gastrointestinal hemorrhage, unspecified (principal); D64.9 Anemia, unspecified; I48.91 Unspecified atrial fibrillation; Z95.1 Presence of aortocoronary bypass graft; Z79.01 Long term (current) use of anticoagulants; Z79.82 Long term (current) use of aspirin
CPT/HCPCS: 36415; 36430; 80053; 85025; 85610; 86850; 86900; 86901; 86920; 86922; 93005; 96374; 99285; J3490; J7030; P9016